=== PATIENT | male | born 1965 | race Caucasian/White ===

== ENCOUNTER 2020-06-06 05:14 | Day surgery (SDC) | payer BC ==
[2020-06-06 07:36] VITALS: BMI 28.9
[2020-06-06 08:44] VITALS: TEMP 97.7
[2020-06-06 09:19] VITALS: BP 130/79; PULSE 65
== END 2020-06-06 09:34 | disposition home or self-care (01) ==
LOC: JASU-ENDO 05:14
PROVIDERS: ATTEND Internal Medicine Gastroenterology
PROC: 0DJD8ZZ Inspection of Lower Intestinal Tract, Via Natural or Artificial Opening Endoscopic (ICD-10-PCS; principal; 2020-06-06 08:00)
DX: Z12.11 Encounter for screening for malignant neoplasm of colon (principal); K64.8 Other hemorrhoids; K57.30 Diverticulosis of large intestine without perforation or abscess without bleeding